=== PATIENT | male | born 1985 | race Caucasian/White ===

== ENCOUNTER 2016-09-10 07:39 | Emergency (ER) | payer OTHER ==
[~2016-09-10] VITALS: Ht 180.3 cm; Wt 82.0 kg
[~2016-09-10 07:39] MED LIST: DICL50 PO; IBUP-232 PO
[2016-09-10 07:44] VITALS: BP 141/76; PULSE 70; RESP 22; TEMP 98.2; O2SAT 100
[2016-09-10 07:53] VITALS: BP 141/76; PULSE 70; RESP 22; O2SAT 100
[2016-09-10] MEDS ORDERED: ONDANSETRON HCL 4 MG/2 ML VIAL IV PUSH ONE (08:00)
[2016-09-10] MEDS ORDERED: HYDROmorphone HCL PF 1 MG/ML VIAL IV PUSH ONE (08:00)
[2016-09-10] MEDS ORDERED: SODIUM CHLOR 0.9% 1000 ML INJ 1,000 ML IV ONE (08:00)
[2016-09-10 08:31] LABS: AUTOMATED NEUTROPHIL # 9.7 TH/MM3 (1.8-7.7); BASOPHIL # 0.1 TH/MM3 (0-0.2); BASOPHIL % 0.4 % (0.0-2.0); EOSINOPHIL # 0.2 TH/MM3 (0-0.4); EOSINOPHIL % 1.4 % (0.0-4.0); HEMATOCRIT 43.1 % (39.0-51.0); HEMO FLAGS DIFF FINAL; LYMPH % 21.2 % (9.0-44.0); LYMPHOCYTE # 2.9 TH/MM3 (1.0-4.8); MEAN CELL VOLUME 89.2 FL (80.0-100.0); MEAN CORPUSCULAR HEMOGLOBIN 30.4 PG (27.0-34.0); MEAN CORPUSCULAR HGB CONC 34.1 % (32.0-36.0); MONO % 6.3 % (0.0-8.0); NEUT % 70.7 % (16.0-70.0); PLATELET COUNT 288 TH/MM3 (150-450); RED BLOOD COUNT 4.83 MIL/MM3 (4.50-5.90); RED CELL DISTRIBUTION WIDTH 13.3 % (11.6-17.2); WHITE BLOOD COUNT 13.7 TH/MM3 (4.0-11.0)
[2016-09-10 08:45] LABS: POTASSIUM 4.1 MEQ/L (3.5-5.1)
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
[2016-09-10 09:38] VITALS: BP 141/71; PULSE 68; RESP 20; O2SAT 75; O2SAT 98
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
[2016-09-10] MEDS ORDERED: oxyCODONE/ACETAMINOPHEN 5 MG/325 MG TAB PO ONE (10:15)
[2016-09-10] MEDS ORDERED: LIDOCAINE 2%/EPINEPHrine 1:100,000 30ML MDV INFIL ONE (10:15)
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
--- NOTE | 2016-09-10 11:45 | PD ---
Physical Exam Time Seen by Provider: 11:42 Data Data Last Documented VS Vital Signs Date Time Temp Pulse Resp B/P Pulse Ox O2 Delivery O2 Flow Rate FiO2 09/10/16 09:38 68 20 141/71 98 Room Air 09/10/16 07:44 98.2 Orders Chest, Single Ap (09/10/16 ) Pelvis, Ap Only (Routine) (09/10/16 ) Knee, Complete (4vws) (09/10/16 ) Knee, Complete (4vws) (09/10/16 ) Tibia/Fibula (Ap/Lat) (09/10/16 ) Ankle, Complete ([id number]) (09/10/16 ) Complete Blood Count With Diff (09/10/16 07:49) Basic Metabolic Panel (Bmp) (09/10/16 07:49) Hydromorphone Pf Inj (Dilaudid Pf Inj) (09/10/16 08:00) Ondansetron Inj (Zofran Inj) (09/10/16 08:00) Sodium Chlor 0.9% 1000 Ml Inj (Ns 1000 M (09/10/16 08:00) Ct Abd/Pel W/O Iv Contrast (09/10/16 ) Cefazolin Inj (Ancef Inj) (09/10/16 09:45) Femur (Ap & Lat/2vws) (09/10/16 ) Oxycodone-Acetamin 5-325 Mg (Percocet (09/10/16 10:15) Lidocai-Epi 2%-1:100,000 Inj (Xylocaine- (09/10/16 10:15) Splint Or Brace Apply/Monitor (09/10/16 10:13) Fiberglass Short Leg Splint Ad (09/10/16 ) Fiberglass Sugartong Sp Ad Sl (09/10/16 ) Labs Laboratory Tests Test 09/10/16 08:02 White Blood Count 13.7 TH/MM3 Red Blood Count 4.83 MIL/MM3 Hemoglobin 14.7 GM/DL Hematocrit 43.1 % Mean Corpuscular Volume 89.2 FL Mean Corpuscular Hemoglobin 30.4 PG Mean Corpuscular Hemoglobin 34.1 % Concent Red Cell Distribution Width 13.3 % Platelet Count 288 TH/MM3 Mean Platelet Volume 8.0 FL Neutrophils (%) (Auto) 70.7 % Lymphocytes (%) (Auto) 21.2 % Monocytes (%) (Auto) 6.3 % Eosinophils (%) (Auto) 1.4 % Basophils (%) (Auto) 0.4 % Neutrophils # (Auto) 9.7 TH/MM3 Lymphocytes # (Auto) 2.9 TH/MM3 Monocytes # (Auto) 0.9 TH/MM3 Eosinophils # (Auto) 0.2 TH/MM3 Basophils # (Auto) 0.1 TH/MM3 CBC Comment DIFF FINAL Differential Comment Sodium Level 141 MEQ/L Potassium Level 4.1 MEQ/L Chloride Level 107 MEQ/L Carbon Dioxide Level 26.0 MEQ/L Anion Gap 8 MEQ/L Blood Urea Nitrogen 21 MG/DL Creatinine 1.08 MG/DL Estimat Glomerular Filtration 80 ML/MIN Rate Random Glucose 149 MG/DL Calcium Level 8.8 MG/DL MDM Medical Record Reviewed: Yes Supervised Visit with LIZ: No Procedures Procedure Narrative LACERATION LOCATION:right posterior thigh LENGTH:10 cm NUMBER OF STITCHES/JAMES: 4 internal; 6 horizontal mattress; 2 simple interrupted REPAIR: The area of the laceration was prepped with Betadine and sterilely draped. The laceration was infiltrated with 1 % lidocaine with epinephrine. The wound was copiously irrigated and explored without evidence of foreign body , tendon injury or neurovascular injury. The wound was closed using 4-0 vicryl ; 4-0 prolene. This was a double layer repair. A sterile dressing was applied. The patient was advised to keep the dressing clean and dry. Patient tolerated the procedure well. Condition: Stable Luiza Phillips DANIELLA Sep 10, 2016 11:44
[2016-09-10] MEDS ORDERED: PERC5TAB12 PO (12:14)
[2016-09-10] MEDS ORDERED: CEPH-460 PO (12:14)
[2016-09-10] MEDS ORDERED: MORPHINE SULFATE 4 MG/ML INJ IV PUSH ONE (13:00)
[2016-09-10 13:16] VITALS: BP 145/67
== END 2016-09-10 13:18 | disposition home or self-care (01) ==
LOC: NEPE 07:39
DX: S81.011A Laceration without foreign body, right knee, initial encounter (principal); S82.832A Other fracture of upper and lower end of left fibula, initial encounter for closed fracture; S70.212A Abrasion, left hip, initial encounter; M25.462 Effusion, left knee; R10.30 Lower abdominal pain, unspecified; F17.200 Nicotine dependence, unspecified, uncomplicated; V09.20XA Pedestrian injured in traffic accident involving unspecified motor vehicles, initial encounter
CPT/HCPCS: 12004; 29515; 71010; 72170; 73552; 73564; 73590; 73610; 74176; 80048; 85025; 96361; 96365; 96375; 99285; J0690; J1170; J2270; J2405; J7030

== ENCOUNTER 2016-09-17 16:46 | Emergency (ER) | payer OTHER ==
[~2016-09-17] VITALS: Ht 180.3 cm; Wt 80.0 kg
[~2016-09-17 16:46] MED LIST changes: +CEPH-460 PO; -DICL50 PO; -IBUP-232 PO; +PERC5TAB12 PO
[2016-09-17 16:48] VITALS: BP 153/78; PULSE 128; RESP 20; TEMP 98.1; O2SAT 100
[2016-09-17 21:07] VITALS: BP 160/77; PULSE 104; RESP 18; TEMP 100.2; O2SAT 100
[2016-09-17] MEDS ORDERED: SODIUM CHLOR 0.9% 1000 ML INJ 400 ML IV ONE (21:44)
[2016-09-17] MEDS ORDERED: PIPERACIL-TAZO 4.5 GM PREMIX 100 ML IV STA (21:44)
[2016-09-17] MEDS ORDERED: SODIUM CHLOR 0.9% 1000 ML INJ 1,000 ML IV ONE ×2 (21:44)
[2016-09-17] MEDS ORDERED: ACETAMINOPHEN 325 MG TAB PO ONE (21:45)
[2016-09-17] MEDS ORDERED: ONDANSETRON HCL 4 MG/2 ML VIAL IV ONE (21:45)
[2016-09-17] MEDS ORDERED: MORPHINE SULFATE 8 MG/ML INJ IV PUSH ONE (21:45)
[2016-09-17 22:14] VITALS: BP 145/71; PULSE 107; RESP 20; O2SAT 98
[2016-09-17 22:28] LABS: AUTOMATED NEUTROPHIL # 5.2 TH/MM3 (1.8-7.7); BASOPHIL % 0.5 % (0.0-2.0); EOSINOPHIL # 0.2 TH/MM3 (0-0.4); EOSINOPHIL % 2.6 % (0.0-4.0); HEMATOCRIT 30.5 % (39.0-51.0); HEMO FLAGS DIFF FINAL; LYMPH % 20.8 % (9.0-44.0); LYMPHOCYTE # 1.6 TH/MM3 (1.0-4.8); MEAN CELL VOLUME 86.7 FL (80.0-100.0); MEAN CORPUSCULAR HEMOGLOBIN 30.9 PG (27.0-34.0); MEAN CORPUSCULAR HGB CONC 35.6 % (32.0-36.0); MONO % 9.9 % (0.0-8.0); NEUT % 66.2 % (16.0-70.0); PLATELET COUNT 462 TH/MM3 (150-450); RED BLOOD COUNT 3.52 MIL/MM3 (4.50-5.90); RED CELL DISTRIBUTION WIDTH 12.9 % (11.6-17.2); WHITE BLOOD COUNT 7.8 TH/MM3 (4.0-11.0)
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
[2016-09-17 22:42] LABS: BICARBONATE 30.8 MEQ/L (21.0-32.0); POTASSIUM 3.7 MEQ/L (3.5-5.1)
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
[2016-09-17] MEDS ORDERED: NORC5TAB PO (23:37)
[2016-09-17] MEDS ORDERED: HYDROmorphone HCL PF 2 MG/ML VIAL IV PUSH ONE (23:45)
[2016-09-18 00:32] VITALS: BP 141/82; PULSE 98; RESP 18; O2SAT 100
== END 2016-09-18 00:49 | disposition home or self-care (01) ==
LOC: NEPA 16:46
DX: S87.82XD Crushing injury of left lower leg, subsequent encounter (principal); S82.832G Other fracture of upper and lower end of left fibula, subsequent encounter for closed fracture with delayed healing; M79.605 Pain in left leg; M79.604 Pain in right leg; R50.9 Fever, unspecified; M79.89 Other specified soft tissue disorders; V09.20XD Pedestrian injured in traffic accident involving unspecified motor vehicles, subsequent encounter; Y93.9 Activity, unspecified; Y92.410 Unspecified street and highway as the place of occurrence of the external cause; Y99.9 Unspecified external cause status; R20.0 Anesthesia of skin
CPT/HCPCS: 29515; 80048; 83605; 85025; 87040; 93970; 96361; 96365; 96375; 99284; J1170; J2270; J2405; J2543; J7030

== ENCOUNTER → 2016-09-27 | Day surgery (SDC) | payer OTHER ==
[~2016-09-27] VITALS: Ht 180.3 cm; Wt 79.3 kg
[~2016-09-27] MED LIST changes: +*HYDROmorphone PF 1 MG VIAL PERIprocedural Use ONLY ONE; +*LABETALOL HCL 100 MG/20 ML VIAL PERIprocedural Use ONLY ONE; +CHLORHEXIDINE GLUCONATE 2 % 1 PACK (2 CLOTHS) TOPICAL PRN; +CHLORHEXIDINE GLUCONATE 4% SOLN 120 ML BTL TOPICAL SCH; +DEXAMETHASONE SOD PHOS 4 MG/ML VIAL ONE; +FAMOTIDINE 20 MG/2 ML VIAL ONE; +GENTAMICIN SULFATE 80 MG/2 ML VIAL ONE; +HYDROmorphone HCL PF 1 MG/ML VIAL ONE; +INSULIN HUMAN REGULAR 1,000 UNITS/10 ML VIAL SQ PRN; +KETOROLAC TROMETHAMINE 30 MG/ML (IVP) VIAL IVP ONE; +METOPROLOL TARTRATE 25 MG TAB PO PRN; +MIDAZOLAM HCL 2 MG/2 ML VIAL ONE; +MORPHINE SULFATE 4 MG/ML INJ IV PUSH PRN; +MORPHINE SULFATE 4 MG/ML INJ ONE; +NEOSTIGMINE 3 MG/3 ML SYR IV ONE; +NORC5TAB PO; +ONDANSETRON HCL 4 MG/2 ML VIAL IV PRN; +ONDANSETRON HCL 4 MG/2 ML VIAL IV PUSH ONE; +POVIDONE IODINE 5% (ANTISEPSIS KIT) 4 APPLICATIONS EACH NARE PRN; +PROPOFOL 200 MG/20 ML AMP IV ONE; +SODIUM CHLORID 0.9% 500 ML IV PRN; +SODIUM CHLORIDE 0.9% FLUSH 10 ML FLUSH IV FLUSH PRN; +SODIUM CHLORIDE 0.9% FLUSH 10 ML FLUSH IV FLUSH SCH; +VANCOMYCIN 1000 MG/NS 250 ML (for <70 kg) IV SCH; +ceFAZolin 2 GM PREMIX 50 ML IV SCH; +fentaNYL CITRATE 250 MCG/5 ML AMP ONE; +oxyCODONE/ACETAMINOPHEN 5 MG/325 MG TAB PO PRN
[2016-09-27 14:46] VITALS: BP 152/79; PULSE 87; RESP 18; TEMP 97.4; O2SAT 98
[2016-09-27] MEDS: LACTATED RINGER'S 1000 ML IV PRN ×2 (15:15→19:00)
--- NOTE | 2016-09-27 18:49 | RADRPT ---
EXAM DATE/TIME: 09/27/2016 18:11 [facility] COMPARISON: No previous studies available for comparison. INDICATIONS : ORIF left ankle. MEDICAL HISTORY : None. SURGICAL HISTORY : None. ENCOUNTER: Subsequent ACUITY: 2 weeks PAIN SCORE: Non-responsive. LOCATION: Left ankle. FINDINGS: Hardware is noted within the left distal fibula status post ORIF. A screw traverses the fibula and t ibia distally also. CONCLUSION: Status post ORIF of left distal fibula fracture with hardware in good position as well as a transvers e screw traversing the distal fibula and tibia. Dominick Harding MD on September 27, 2016 at 18:44 Board Certified Radiologist. This report was verified electronically.
--- NOTE | 2016-09-27 18:51 | PD.OP ---
cc: Shan Garnica Jr., MD Operative Report Date of Surgery: Sep 27, 2016 Preoperative Diagnosis: closed Left bimalleolar equivalent ankle fracture Postoperative Diagnosis: same Procedure: Open reduction internal fixation with syndesmotic fixation left ankle fracture Anesthesia: GEn Surgeon: Shan Garnica Cartographic Designer(s): Staff Resident Surgeon: none Operation and Findings: Informed consent obtained, operative site was marked. The foot and ankle were seen and evaluated this morning. Soft tissue swelling had significantly improved and appeared to be ready for surgery. He was brought to the operating room and placed on the operating room table. He was given intravenous sedation, general endotracheal anesthesia. He received IV antibiotics and was placed in the lateral decubitus position. Left Foot and leg were prepped with alcohol, followed by Hibiclens, draped in usual sterile fashion. A time out procedure was preformed. The procedure began with a five inch incision over the lateral aspect fibula. A full thickness flap was carefully elevated. The fracture was identified , periosteum was elevated atthe fracture site. Attention was now turned to expose the distal end of the fibula and as much proximal as necessary to allow reduction and plate position. Attention was turned to the syndesmosis and under direct visualization the syndesmotic area was cleaned of any debris and irrigated. Using pointed reduction clamps the fibula was reduced and reduction was maintained using lag screw fixation. Reduction was confirmed under fluoroscopy. The rest of the fibula was neutralized using a lateral one third tubular fibular plate. Using fluoroscopy, the syndesmosis was stressed in the mortise view with the cotton test and external rotation stress test. The syndesmosis was found to be unstable. With the ankle held at neutral in slight dorsiflexion the syndesmotic was reduced and clamped prior to lag screw fixation with a 4.0 mm screw going through 4 cortices. Multiplanar fluoroscopy confirmed well-aligned fracture. Final fluoroscopy was used to confirm a well-aligned fracture with well-placed hardware. Incision was thoroughly irrigated. Hemostasis was confirmed. Fascia layer was closed 0 Vicryl, the skin and subcutaneous tissue closed with 3-0 nylon, in vertical mattress fashion. Sterile dressings were applied the patient was placed into a well molded padded splint. The patient was transferred to the Recovery Room in stable condition. POSTP-OP PLAN OF ACTIVITY Antibiotics: none Antiocoagulation: scd. OOB. Weight bearing status: NWB Dressing: Do not remove splints Dispo: expected discharge home from PACU Shan Garnica Jr., MD Sep 27, 2016 18:51
[2016-09-27 21:15] VITALS: TEMP 98.4
[2016-09-27 22:00] VITALS: BP 153/82; PULSE 85; RESP 18; O2SAT 97
== END | disposition home or self-care (01) ==
LOC: HSDC 13:59
PROVIDERS: ATTEND Orthopaedic Surgery
DX: S82.842A Displaced bimalleolar fracture of left lower leg, initial encounter for closed fracture (principal); S93.05XA Dislocation of left ankle joint, initial encounter; V09.20XA Pedestrian injured in traffic accident involving unspecified motor vehicles, initial encounter
CPT/HCPCS: 01480; 27814; 27829; 73600; 76000; 86850; 86900; 86901; C1713; J0690; J1100; J1170; J1885; J2250; J2270; J2405; J2710; J3010; J3370; J7050; J7120; J1580